=== PATIENT | male | born 1965 | race Asian ===

== ENCOUNTER 2020-06-27 12:29 | Inpatient (IN) | payer MEDICARE ==
[~2020-06-27] VITALS: Ht 180.3 cm; Wt 101.3 kg
[~2020-06-27 12:29] MED LIST: CITA-144 PO; MIRT-89 PO; RISP1TAB48 PO
[2020-06-27] MEDS ORDERED: LORazepam 1 MG TABLET PO PRN (15:15)
[2020-06-27] MEDS ORDERED: ZOLPIDEM TARTRATE 10 MG TABLET PO PRN (15:15)
[2020-06-27] MEDS ORDERED: HALOPERIDOL 5 MG TABLET PO PRN (15:15)
[2020-06-27 17:30] VITALS: BP 154/101
[2020-06-27 19:32] VITALS: BP 153/95
[2020-06-27] MEDS ORDERED: INFLUENZA VIRUS VACCINE QVS 2020-21 (6MO+)/PF 60 MCG/0.5 ML SYRINGE IM ONE (20:15)
[2020-06-28] MEDS ORDERED: PETROLATUM,WHITE 28 GM JELLY TP PRN (07:00)
[2020-06-28] MEDS ORDERED: ALBUTEROL SULFATE HFA 90 MCG/PUFF 8 GM INHALER IH PRN (07:00)
[2020-06-28] MEDS ORDERED: MAGNESIUM HYDROXIDE SUSPENSION 30 ML UDCUP PO PRN (07:00)
[2020-06-28] MEDS ORDERED: IBUPROFEN 400 MG TABLET PO PRN (07:00)
[2020-06-28] MEDS ORDERED: GuaiFENesin/D-METHORPHAN [SUGAR-FREE] 200-20MG/10 ML SYRUP UDCUP PO PRN (07:00)
[2020-06-28] MEDS ORDERED: LOPERAMIDE HCL 2 MG CAPSULE PO PRN (07:00)
[2020-06-28] MEDS ORDERED: ONDANSETRON HCL 4 MG TABLET PO PRN (07:00)
[2020-06-28] MEDS ORDERED: DOCUSATE SODIUM 100 MG CAPSULE PO PRN (07:00)
[2020-06-28] MEDS ORDERED: MAG HYDROX/AL HYDROX/SIMETH ES 30 ML SUSPENSION UDCUP PO PRN (07:00)
[2020-06-28] MEDS ORDERED: ACETAMINOPHEN 325 MG TABLET PO PRN (07:00)
[2020-06-28] MEDS ORDERED: NICOTINE 14 MG/24 HOUR PATCH TD PRN (07:00)
[2020-06-28 08:31] VITALS: BP 154/92
[2020-06-28] MEDS: NIFEdipine 60 MG ER TABLET PO SCH ×2 (09:30→15:51)
[2020-06-28] MEDS: SERTRALINE HCL 50 MG TABLET PO SCH (09:52)
[2020-06-28] MEDS: LURASIDONE HCL 40 MG TABLET PO SCH (16:53)
[2020-06-28 20:14] VITALS: BP 155/99
[2020-06-29] MEDS: SERTRALINE HCL 50 MG TABLET PO SCH (08:05)
[2020-06-29] MEDS: NIFEdipine 60 MG ER TABLET PO SCH (08:05)
[2020-06-29] MEDS: CloNIDine HCL 0.1 MG TABLET PO PRN (10:32)
[2020-06-29 10:35] VITALS: BP 161/103
[2020-06-29 12:05] VITALS: BP 154/104
[2020-06-29] MEDS: LISINOPRIL 10 MG TABLET PO SCH (12:36)
[2020-06-29] MEDS: LURASIDONE HCL 40 MG TABLET PO SCH (16:04)
[2020-06-29 16:19] VITALS: BP 152/90
[2020-06-30 05:59] VITALS: BP 151/90
[2020-06-30 08:00] VITALS: BP 140/90
[2020-06-30] MEDS: LISINOPRIL 10 MG TABLET PO SCH (08:02)
[2020-06-30] MEDS: NIFEdipine 60 MG ER TABLET PO SCH (08:02)
[2020-06-30] MEDS: SERTRALINE HCL 50 MG TABLET PO SCH (08:02)
[2020-06-30 16:08] VITALS: BP 133/78
[2020-06-30] MEDS: LURASIDONE HCL 40 MG TABLET PO SCH (17:12)
[2020-07-01] MEDS: NIFEdipine 60 MG ER TABLET PO SCH (08:13)
[2020-07-01] MEDS: LISINOPRIL 10 MG TABLET PO SCH (08:13)
[2020-07-01] MEDS: SERTRALINE HCL 50 MG TABLET PO SCH (08:13)
[2020-07-01 08:26] VITALS: BP 132/90
[2020-07-01 16:10] VITALS: BP 140/96
[2020-07-01] MEDS: LURASIDONE HCL 40 MG TABLET PO SCH (16:55)
[2020-07-02 01:21] VITALS: BP 128/85
[2020-07-02] MEDS: SERTRALINE HCL 50 MG TABLET PO SCH (08:24)
[2020-07-02] MEDS: NIFEdipine 60 MG ER TABLET PO SCH (08:24)
[2020-07-02] MEDS: LISINOPRIL 10 MG TABLET PO SCH (08:24)
[2020-07-02 08:47] LABS: COVID AG,FIA SOURCE NASOPHARYNGEAL
[2020-07-02 09:30] VITALS: BP 139/96
[2020-07-02] MEDS: LURASIDONE HCL 40 MG TABLET PO SCH (16:03)
[2020-07-02 16:17] VITALS: BP 143/86
[2020-07-03 00:49] VITALS: BP 142/82
[2020-07-03] MEDS: NIFEdipine 60 MG ER TABLET PO SCH (08:05)
[2020-07-03] MEDS: SERTRALINE HCL 50 MG TABLET PO SCH (08:05)
[2020-07-03] MEDS: LISINOPRIL 10 MG TABLET PO SCH (08:05)
[2020-07-03 08:14] VITALS: BP 150/80
[2020-07-03 16:20] VITALS: BP 140/86
[2020-07-03] MEDS: LURASIDONE HCL 40 MG TABLET PO SCH (17:46)
[2020-07-04 00:22] VITALS: BP 141/80
[2020-07-04] MEDS: NIFEdipine 60 MG ER TABLET PO SCH (08:17)
[2020-07-04] MEDS: LISINOPRIL 10 MG TABLET PO SCH (08:17)
[2020-07-04] MEDS: SERTRALINE HCL 50 MG TABLET PO SCH (08:17)
[2020-07-04 08:24] VITALS: BP 151/92
[2020-07-04 16:12] VITALS: BP 147/92
[2020-07-04] MEDS: LURASIDONE HCL 40 MG TABLET PO SCH (16:56)
[2020-07-04] MEDS: HydrALAZINE HCL 10 MG TABLET PO SCH (20:26)
[2020-07-05 06:20] VITALS: BP 138/90
[2020-07-05 08:00] VITALS: BP 125/90
[2020-07-05] MEDS: NIFEdipine 60 MG ER TABLET PO SCH (08:15)
[2020-07-05] MEDS: HydrALAZINE HCL 10 MG TABLET PO SCH ×2 (08:16→20:33)
[2020-07-05] MEDS: SERTRALINE HCL 50 MG TABLET PO SCH (08:16)
[2020-07-05] MEDS: LISINOPRIL 10 MG TABLET PO SCH (08:16)
[2020-07-05 16:14] VITALS: BP 116/78
[2020-07-05] MEDS: LURASIDONE HCL 40 MG TABLET PO SCH (16:47)
[2020-07-05 20:32] VITALS: BP 125/81
[2020-07-06 06:58] VITALS: BP 157/101
[2020-07-06] MEDS: CloNIDine HCL 0.1 MG TABLET PO PRN (06:58)
[2020-07-06 08:27] VITALS: BP 120/80
[2020-07-06] MEDS: SERTRALINE HCL 50 MG TABLET PO SCH (09:42)
[2020-07-06] MEDS: LISINOPRIL 10 MG TABLET PO SCH (09:42)
[2020-07-06] MEDS: NIFEdipine 60 MG ER TABLET PO SCH (09:43)
[2020-07-06] MEDS: HydrALAZINE HCL 10 MG TABLET PO SCH ×2 (09:55→20:30)
[2020-07-06 16:14] VITALS: BP 112/69
[2020-07-06] MEDS: LURASIDONE HCL 40 MG TABLET PO SCH (17:09)
[2020-07-06 20:29] VITALS: BP 142/84
[2020-07-07 08:48] VITALS: BP 127/83
[2020-07-07] MEDS: NIFEdipine 60 MG ER TABLET PO SCH (08:50)
[2020-07-07] MEDS: SERTRALINE HCL 50 MG TABLET PO SCH (08:50)
[2020-07-07] MEDS: LISINOPRIL 10 MG TABLET PO SCH (08:50)
[2020-07-07] MEDS: HydrALAZINE HCL 10 MG TABLET PO SCH ×2 (08:51→20:28)
[2020-07-07 16:24] VITALS: BP 124/85
[2020-07-07] MEDS: LURASIDONE HCL 40 MG TABLET PO SCH (16:52)
[2020-07-07 20:01] VITALS: BP 144/86
[2020-07-08 08:15] VITALS: BP 132/82
[2020-07-08] MEDS: NIFEdipine 60 MG ER TABLET PO SCH (09:32)
[2020-07-08] MEDS: SERTRALINE HCL 50 MG TABLET PO SCH (09:32)
[2020-07-08] MEDS: HydrALAZINE HCL 10 MG TABLET PO SCH ×2 (09:32→20:55)
[2020-07-08] MEDS: LISINOPRIL 10 MG TABLET PO SCH (09:32)
[2020-07-08 16:28] VITALS: BP 140/84
[2020-07-08] MEDS: LURASIDONE HCL 40 MG TABLET PO SCH (17:00)
[2020-07-08 20:56] VITALS: BP 146/91
[2020-07-09 06:16] VITALS: BP 159/102
[2020-07-09] MEDS: NIFEdipine 60 MG ER TABLET PO SCH (08:23)
[2020-07-09] MEDS: HydrALAZINE HCL 10 MG TABLET PO SCH (08:23)
[2020-07-09] MEDS: LISINOPRIL 10 MG TABLET PO SCH (08:23)
[2020-07-09] MEDS: SERTRALINE HCL 50 MG TABLET PO SCH (08:23)
[2020-07-09 09:20] VITALS: BP 142/89
[2020-07-09] MEDS ORDERED: LURA40TA2 PO (13:02)
[2020-07-09] MEDS ORDERED: SERT-439 PO (13:02)
[2020-07-09] MEDS ORDERED: LISI-661 PO (13:29)
[2020-07-09] MEDS ORDERED: NIFE60TA81 PO (13:30)
[2020-07-09] MEDS ORDERED: HYDR-4172 PO (13:31)
[2020-07-10 08:48] LABS: COVID AG,FIA SOURCE NASOPHARYNGEAL
== END 2020-07-09 18:00 | disposition home or self-care (01) | DRG 885 ==
LOC: B2X 15:30
DX: F25.1 Schizoaffective disorder, depressive type (principal); R45.851 Suicidal ideations; E66.9 Obesity, unspecified; I10 Essential (primary) hypertension; K59.00 Constipation, unspecified; Z91.5 Personal history of self-harm; Z79.899 Other long term (current) drug therapy; Z91.19 Patient's noncompliance with other medical treatment and regimen; Z68.31 Body mass index [BMI] 31.0-31.9, adult; Z28.21 Immunization not carried out because of patient refusal
CPT/HCPCS: 87081; 87426; 90686; G0008; Z7610

== ENCOUNTER 2021-05-27 09:49 | Inpatient (IN) | payer MEDICARE, SELFPAY ==
[~2021-05-27] VITALS: Ht 180.3 cm; Wt 100.0 kg
[~2021-05-27 09:49] MED LIST changes: -CITA-144 PO; +HYDR-4172 PO; +LISI-661 PO; +LURA40TA2 PO; -MIRT-89 PO; +NIFE60TA81 PO; -RISP1TAB48 PO; +SERT-439 PO
[2021-05-27 12:54] LABS: BASOPHILS % (AUTO) 0.3 % (0.0-2.0); EOSINOPHILS % (AUTO) 0.1 % (1.0-6.0); HEMATOCRIT 44.5 % (41-53); HEMOGLOBIN 15.2 g/dL (13.5-17.5); LYMPHOCYTES # (AUTO) 1.4 K/uL (1.0-4.8); LYMPHOCYTES % (AUTO) 32.5 % (22.0-44.0); MEAN CORPUSCULAR HEMOGLOBIN 30.6 pg (26.0-34.0); MEAN CORPUSCULAR HGB CONC 34.2 G/dL (31.0-37.0); MEAN CORPUSCULAR VOLUME 89 fL (80-100); MONOCYTES # (AUTO) 0.4 K/uL (0.1-1.0); MONOCYTES % (AUTO) 8.4 % (2.0-9.0); NEUTROPHILS # (AUTO) 2.5 K/uL (1.8-7.7); NEUTROPHILS % (AUTO) 58.7 % (40.0-70.0); PLATELET COUNT (AUTO) 146 K/uL (150-450); RED BLOOD CELL COUNT(AUTO) 4.98 MIL/uL (4.50-5.90); RED CELL DISTRIBUTION WIDTH 13.1 % (11.5-14.5)
[2021-05-27 13:03] LABS: ANION GAP 8 mmol/L (8-16); CALCIUM, TOTAL 8.4 mg/dL (8.8-10.5); CARBON DIOXIDE 28 mmol/L (22-29); CHLORIDE 99 mmol/L (98-107); CREATININE 1.02 mg/dL (0.60-1.30); GLOMERULAR FILTR. RATE CALC > 60 mL/min (>60); GLUCOSE,RANDOM 94 mg/dL (70-110); POTASSIUM 3.8 mmol/L (3.5-5.1); SODIUM SERUM 135 mmol/L (136-145); UREA NITROGEN, BLOOD 11 mg/dL (7-18)
[2021-05-27 13:09] LABS: ALANINE AMINOTRANSFERASE 34 U/L (12-78); ALBUMIN 3.5 g/dL (3.4-5.0); ALKALINE PHOSPHATASE 73 U/L (46-116); ASPARTATE AMINOTRANSFERASE 34 U/L (15-37); BILIRUBIN,TOTAL 0.5 mg/dL (0.1-1.0); TOTAL PROTEIN, SERUM 7.9 g/dL (6.4-8.2)
[2021-05-27] MEDS ORDERED: HALOPERIDOL 5 MG TABLET PO ONE (13:30)
[2021-05-27 13:48] LABS: COVID AG,FIA SOURCE NASOPHARYNGEAL
[2021-05-27 14:25] LABS: AMPHET/METH SCREEN,URINE NEGATIVE (NEGATIVE); BARBITURATE SCREEN, URINE NEGATIVE (NEGATIVE); BENZODIAZEPINES SCREEN,URINE NEGATIVE (NEGATIVE); CANNABINOID SCREEN,URINE NEGATIVE (NEGATIVE); COCAINE SCREEN,URINE NEGATIVE (NEGATIVE); METHADONE SCREEN, URINE NEGATIVE (NEGATIVE); OPIATE SCREEN,URINE NEGATIVE (NEGATIVE)
[2021-05-27 14:27] LABS: PHENCYCLIDINE SCREEN,URINE NEGATIVE (NEGATIVE)
[2021-05-28] MEDS ORDERED: MAGNESIUM HYDROXIDE SUSPENSION 30 ML UDCUP PO PRN (04:30)
[2021-05-28] MEDS ORDERED: ONDANSETRON HCL 4 MG/2 ML VIAL IVP PRN (04:30)
[2021-05-28] MEDS ORDERED: PANTOPRAZOLE SODIUM 40 MG DR TABLET PO ONE (04:30)
[2021-05-28] MEDS ORDERED: BISACODYL 10 MG RECTAL RECTAL SUPPOSITORY PR PRN (04:30)
[2021-05-28] MEDS: HEPARIN SODIUM,PORCINE 5,000 UNITS/ML VIAL SQ SCH ×3 (07:17→23:18)
[2021-05-28] MEDS ORDERED: PANTOPRAZOLE SODIUM 40 MG/VIAL IVP SCH (09:00)
[2021-05-28] MEDS ORDERED: NIFEdipine 60 MG ER TABLET PO SCH (09:00)
[2021-05-28] MEDS: NIFEdipine 60 MG ER TABLET PO SCH (09:15)
[2021-05-28] MEDS: ZOLPIDEM TARTRATE 5 MG TABLET PO PRN (23:19)
[2021-05-28] MEDS: ACETAMINOPHEN 325 MG TABLET PO PRN (23:19)
[2021-05-29] MEDS: NIFEdipine 60 MG ER TABLET PO SCH (09:36)
[2021-05-29] MEDS: HEPARIN SODIUM,PORCINE 5,000 UNITS/ML VIAL SQ SCH ×3 (09:36→23:54)
[2021-05-29] MEDS: PANTOPRAZOLE SODIUM 40 MG DR TABLET PO SCH (09:36)
[2021-05-29] MEDS: ACETAMINOPHEN 325 MG TABLET PO PRN ×2 (15:29→23:58)
[2021-05-29 16:53] VITALS: BP 137/91
[2021-05-29] MEDS ORDERED: INFLUENZA VIRUS VACCINE QVS 2021-22 (6MO+)/PF 60 MCG/0.5 ML SYRINGE IM. ONE (17:45)
[2021-05-29 18:38] LABS: BASOPHILS % (AUTO) 0.3 % (0.0-2.0); EOSINOPHILS % (AUTO) 0.7 % (1.0-6.0); HEMATOCRIT 40.7 % (41-53); HEMOGLOBIN 14.2 g/dL (13.5-17.5); LYMPHOCYTES # (AUTO) 1.3 K/uL (1.0-4.8); LYMPHOCYTES % (AUTO) 27.7 % (22.0-44.0); MEAN CORPUSCULAR HEMOGLOBIN 30.6 pg (26.0-34.0); MEAN CORPUSCULAR VOLUME 87 fL (80-100); MONOCYTES # (AUTO) 0.5 K/uL (0.1-1.0); NEUTROPHILS # (AUTO) 2.9 K/uL (1.8-7.7); NEUTROPHILS % (AUTO) 60.3 % (40.0-70.0); PLATELET COUNT (AUTO) 200 K/uL (150-450); RED BLOOD CELL COUNT(AUTO) 4.66 MIL/uL (4.50-5.90)
[2021-05-29 19:11] LABS: ALANINE AMINOTRANSFERASE 45 U/L (12-78); ALKALINE PHOSPHATASE 71 U/L (46-116); ANION GAP 10 mmol/L (8-16); ASPARTATE AMINOTRANSFERASE 39 U/L (15-37); BILIRUBIN,TOTAL 0.4 mg/dL (0.1-1.0); C-REACTIVE PROTEIN QUANT 2.88 mg/dL (0.00-0.30); CALCIUM, TOTAL 8.5 mg/dL (8.8-10.5); CARBON DIOXIDE 25 mmol/L (22-29); CHLORIDE 102 mmol/L (98-107); FERRITIN 361 ng/mL (26-388); GLOMERULAR FILTR. RATE CALC > 60 mL/min (>60); GLUCOSE,RANDOM 97 mg/dL (70-110); LACTATE DEHYDROGENASE 300 U/L (85-227); POTASSIUM 3.6 mmol/L (3.5-5.1); SODIUM SERUM 137 mmol/L (136-145); TOTAL PROTEIN, SERUM 7.2 g/dL (6.4-8.2); UREA NITROGEN, BLOOD 14 mg/dL (7-18)
[2021-05-29 19:58] VITALS: BP 128/78
[2021-05-29] MEDS: ZOLPIDEM TARTRATE 5 MG TABLET PO PRN (23:58)
[2021-05-30 04:58] VITALS: BP 127/78
[2021-05-30 06:52] LABS: BASOPHILS % (AUTO) 0.2 % (0.0-2.0); EOSINOPHILS % (AUTO) 0.8 % (1.0-6.0); HEMATOCRIT 41.7 % (41-53); HEMOGLOBIN 14.7 g/dL (13.5-17.5); LYMPHOCYTES # (AUTO) 1.3 K/uL (1.0-4.8); MEAN CORPUSCULAR HEMOGLOBIN 30.8 pg (26.0-34.0); MEAN CORPUSCULAR HGB CONC 35.2 G/dL (31.0-37.0); MEAN CORPUSCULAR VOLUME 88 fL (80-100); MONOCYTES # (AUTO) 0.5 K/uL (0.1-1.0); MONOCYTES % (AUTO) 11.5 % (2.0-9.0); NEUTROPHILS # (AUTO) 2.6 K/uL (1.8-7.7); NEUTROPHILS % (AUTO) 57.5 % (40.0-70.0); PLATELET COUNT (AUTO) 223 K/uL (150-450); RED BLOOD CELL COUNT(AUTO) 4.76 MIL/uL (4.50-5.90); RED CELL DISTRIBUTION WIDTH 13.4 % (11.5-14.5)
[2021-05-30 07:14] LABS: ALANINE AMINOTRANSFERASE 44 U/L (12-78); ALBUMIN 2.9 g/dL (3.4-5.0); ALKALINE PHOSPHATASE 69 U/L (46-116); ANION GAP 11 mmol/L (8-16); ASPARTATE AMINOTRANSFERASE 34 U/L (15-37); BILIRUBIN,TOTAL 0.3 mg/dL (0.1-1.0); C-REACTIVE PROTEIN QUANT 3.13 mg/dL (0.00-0.30); CALCIUM, TOTAL 8.7 mg/dL (8.8-10.5); CARBON DIOXIDE 29 mmol/L (22-29); CHLORIDE 103 mmol/L (98-107); CREATININE 0.91 mg/dL (0.60-1.30); FERRITIN 347 ng/mL (26-388); GLOMERULAR FILTR. RATE CALC > 60 mL/min (>60); GLUCOSE,RANDOM 89 mg/dL (70-110); SODIUM SERUM 143 mmol/L (136-145); UREA NITROGEN, BLOOD 13 mg/dL (7-18)
[2021-05-30] MEDS: HEPARIN SODIUM,PORCINE 5,000 UNITS/ML VIAL SQ SCH ×3 (07:53→23:33)
[2021-05-30] MEDS: PANTOPRAZOLE SODIUM 40 MG DR TABLET PO SCH (07:54)
[2021-05-30] MEDS: NIFEdipine 60 MG ER TABLET PO SCH (07:54)
[2021-05-30 08:15] VITALS: BP 142/91
[2021-05-30 11:21] VITALS: BP 127/84
[2021-05-30 15:02] VITALS: BP 128/87
[2021-05-30 19:17] VITALS: BP 130/83
[2021-05-30] MEDS: ZOLPIDEM TARTRATE 5 MG TABLET PO PRN (23:34)
[2021-05-30] MEDS: ACETAMINOPHEN 325 MG TABLET PO PRN (23:34)
[2021-05-30 23:52] VITALS: BP 139/89
[2021-05-31 06:15] VITALS: BP 126/63
[2021-05-31 07:34] VITALS: BP 130/68
[2021-05-31] MEDS: NIFEdipine 60 MG ER TABLET PO SCH (08:42)
[2021-05-31] MEDS: PANTOPRAZOLE SODIUM 40 MG DR TABLET PO SCH (08:42)
[2021-05-31] MEDS: HEPARIN SODIUM,PORCINE 5,000 UNITS/ML VIAL SQ SCH ×3 (08:42→23:49)
[2021-05-31 10:26] LABS: BASOPHILS % (AUTO) 0.1 % (0.0-2.0); EOSINOPHILS % (AUTO) 1.3 % (1.0-6.0); HEMATOCRIT 44.8 % (41-53); HEMOGLOBIN 15.5 g/dL (13.5-17.5); LYMPHOCYTES # (AUTO) 1.4 K/uL (1.0-4.8); LYMPHOCYTES % (AUTO) 26.2 % (22.0-44.0); MEAN CORPUSCULAR HEMOGLOBIN 30.4 pg (26.0-34.0); MEAN CORPUSCULAR HGB CONC 34.5 G/dL (31.0-37.0); MEAN CORPUSCULAR VOLUME 88 fL (80-100); MONOCYTES # (AUTO) 0.5 K/uL (0.1-1.0); MONOCYTES % (AUTO) 9.4 % (2.0-9.0); NEUTROPHILS # (AUTO) 3.3 K/uL (1.8-7.7); PLATELET COUNT (AUTO) 295 K/uL (150-450); RED BLOOD CELL COUNT(AUTO) 5.08 MIL/uL (4.50-5.90); RED CELL DISTRIBUTION WIDTH 13.1 % (11.5-14.5)
[2021-05-31 11:03] LABS: ALANINE AMINOTRANSFERASE 136 U/L (12-78); ALBUMIN 3.3 g/dL (3.4-5.0); ALKALINE PHOSPHATASE 93 U/L (46-116); ANION GAP 7 mmol/L (8-16); ASPARTATE AMINOTRANSFERASE 155 U/L (15-37); BILIRUBIN,TOTAL 0.5 mg/dL (0.1-1.0); CALCIUM, TOTAL 9.1 mg/dL (8.8-10.5); CARBON DIOXIDE 27 mmol/L (22-29); CHLORIDE 103 mmol/L (98-107); FERRITIN 490 ng/mL (26-388); GLOMERULAR FILTR. RATE CALC > 60 mL/min (>60); GLUCOSE,RANDOM 104 mg/dL (70-110); POTASSIUM 4.3 mmol/L (3.5-5.1); SODIUM SERUM 137 mmol/L (136-145); UREA NITROGEN, BLOOD 13 mg/dL (7-18)
[2021-05-31 15:08] VITALS: BP 134/82
[2021-05-31 19:40] VITALS: BP 133/75
[2021-05-31] MEDS: ACETAMINOPHEN 325 MG TABLET PO PRN (23:50)
[2021-05-31] MEDS: ZOLPIDEM TARTRATE 5 MG TABLET PO PRN (23:50)
[2021-05-31 23:56] VITALS: BP 137/98
[2021-06-01 04:03] VITALS: BP 151/99
[2021-06-01 06:12] LABS: BASOPHILS % (AUTO) 0.1 % (0.0-2.0); EOSINOPHILS % (AUTO) 2.1 % (1.0-6.0); HEMATOCRIT 40.9 % (41-53); HEMOGLOBIN 14.1 g/dL (13.5-17.5); LYMPHOCYTES # (AUTO) 1.4 K/uL (1.0-4.8); LYMPHOCYTES % (AUTO) 27.6 % (22.0-44.0); MEAN CORPUSCULAR HEMOGLOBIN 30.5 pg (26.0-34.0); MEAN CORPUSCULAR HGB CONC 34.4 G/dL (31.0-37.0); MEAN CORPUSCULAR VOLUME 89 fL (80-100); MONOCYTES # (AUTO) 0.5 K/uL (0.1-1.0); MONOCYTES % (AUTO) 10.5 % (2.0-9.0); NEUTROPHILS % (AUTO) 59.7 % (40.0-70.0); PLATELET COUNT (AUTO) 289 K/uL (150-450); RED BLOOD CELL COUNT(AUTO) 4.61 MIL/uL (4.50-5.90)
[2021-06-01 06:50] LABS: ANION GAP 2 mmol/L (8-16); CARBON DIOXIDE 31 mmol/L (22-29); CHLORIDE 105 mmol/L (98-107); CREATININE 0.94 mg/dL (0.60-1.30); GLUCOSE,RANDOM 91 mg/dL (70-110); POTASSIUM 4.8 mmol/L (3.5-5.1); SODIUM SERUM 138 mmol/L (136-145); UREA NITROGEN, BLOOD 17 mg/dL (7-18)
[2021-06-01 06:51] LABS: ALANINE AMINOTRANSFERASE 219 U/L (12-78); ALKALINE PHOSPHATASE 95 U/L (46-116); ASPARTATE AMINOTRANSFERASE 214 U/L (15-37); BILIRUBIN,TOTAL 0.4 mg/dL (0.1-1.0); C-REACTIVE PROTEIN QUANT 2.37 mg/dL (0.00-0.30); FERRITIN 559 ng/mL (26-388); GLOMERULAR FILTR. RATE CALC > 60 mL/min (>60); TOTAL PROTEIN, SERUM 7.1 g/dL (6.4-8.2)
[2021-06-01 08:29] VITALS: BP 136/95
[2021-06-01 08:31] VITALS: BP 137/98
[2021-06-01] MEDS: HEPARIN SODIUM,PORCINE 5,000 UNITS/ML VIAL SQ SCH ×3 (09:51→23:02)
[2021-06-01] MEDS: NIFEdipine 60 MG ER TABLET PO SCH (09:51)
[2021-06-01] MEDS: PANTOPRAZOLE SODIUM 40 MG DR TABLET PO SCH (09:51)
[2021-06-01 15:38] LABS: COVID AG,FIA SOURCE NASOPHARYNGEAL
[2021-06-01 19:30] VITALS: BP 139/72
[2021-06-01 23:50] VITALS: BP 138/96
[2021-06-02] MEDS: HEPARIN SODIUM,PORCINE 5,000 UNITS/ML VIAL SQ SCH ×2 (00:46→08:10)
[2021-06-02] MEDS: ZOLPIDEM TARTRATE 5 MG TABLET PO PRN (01:08)
[2021-06-02] MEDS: ACETAMINOPHEN 325 MG TABLET PO PRN (01:08)
[2021-06-02 03:50] VITALS: BP 150/78
[2021-06-02 07:15] LABS: BASOPHILS % (AUTO) 0.3 % (0.0-2.0); EOSINOPHILS % (AUTO) 1.6 % (1.0-6.0); HEMATOCRIT 42.7 % (41-53); HEMOGLOBIN 14.9 g/dL (13.5-17.5); LYMPHOCYTES # (AUTO) 1.9 K/uL (1.0-4.8); LYMPHOCYTES % (AUTO) 33.1 % (22.0-44.0); MEAN CORPUSCULAR HEMOGLOBIN 30.7 pg (26.0-34.0); MEAN CORPUSCULAR HGB CONC 34.8 G/dL (31.0-37.0); MEAN CORPUSCULAR VOLUME 88 fL (80-100); MONOCYTES # (AUTO) 0.6 K/uL (0.1-1.0); MONOCYTES % (AUTO) 10.1 % (2.0-9.0); NEUTROPHILS # (AUTO) 3.2 K/uL (1.8-7.7); NEUTROPHILS % (AUTO) 54.9 % (40.0-70.0); PLATELET COUNT (AUTO) 375 K/uL (150-450); RED BLOOD CELL COUNT(AUTO) 4.85 MIL/uL (4.50-5.90)
[2021-06-02 07:36] VITALS: BP 146/89
[2021-06-02 07:47] LABS: ALANINE AMINOTRANSFERASE 285 U/L (12-78); ALBUMIN 3.2 g/dL (3.4-5.0); ALKALINE PHOSPHATASE 98 U/L (46-116); ANION GAP 11 mmol/L (8-16); ASPARTATE AMINOTRANSFERASE 197 U/L (15-37); BILIRUBIN,TOTAL 0.5 mg/dL (0.1-1.0); CALCIUM, TOTAL 9.1 mg/dL (8.8-10.5); CARBON DIOXIDE 30 mmol/L (22-29); CHLORIDE 104 mmol/L (98-107); CREATININE 0.86 mg/dL (0.60-1.30); FERRITIN 554 ng/mL (26-388); GLOMERULAR FILTR. RATE CALC > 60 mL/min (>60); GLUCOSE,RANDOM 89 mg/dL (70-110); POTASSIUM 4.6 mmol/L (3.5-5.1); SODIUM SERUM 145 mmol/L (136-145); TOTAL PROTEIN, SERUM 7.6 g/dL (6.4-8.2); UREA NITROGEN, BLOOD 16 mg/dL (7-18)
[2021-06-02] MEDS: PANTOPRAZOLE SODIUM 40 MG DR TABLET PO SCH (08:11)
[2021-06-02] MEDS: NIFEdipine 60 MG ER TABLET PO SCH (08:11)
== END 2021-06-02 16:05 | disposition home or self-care (01) | DRG 178 ==
LOC: EMS 09:52 → 6N 05-29 15:52
PROVIDERS: ADMIT Hospitalist; ATTEND Hospitalist
DX: U07.1 COVID-19 (principal); R45.851 Suicidal ideations; F25.1 Schizoaffective disorder, depressive type; I10 Essential (primary) hypertension; F32.A Depression, unspecified; M79.10 Myalgia, unspecified site; Z79.899 Other long term (current) drug therapy
CPT/HCPCS: 80053; 82728; 83615; 84145; 85025; 85379; 86140; 99285; G0480; J1644